=== PATIENT | female | born 1995 | race Caucasian/White ===

== ENCOUNTER 2021-09-15 13:15 | Emergency (ER) | payer MEDICAID, OTHER ==
[~2021-09-15] VITALS: Ht 167.7 cm; Wt 90.7 kg
[2021-09-15] MEDS ORDERED: MIDAZOLAM 10 MG/2 ML (VERSED) VIAL IM STA (13:35)
[2021-09-15] MEDS ORDERED: HALOPERIDOL 5 MG/ML (HALDOL) VIAL IM STA (13:35)
[2021-09-15] MEDS ORDERED: NS IV 1000 ML 1,000 ML IV SCH (13:45)
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
[2021-09-15 14:08] LABS: BASOPHILS # (AUTO) 0.1 10^3/uL (0.0-0.1); BASOPHILS % (AUTO) 0 % (0-10); EOSINOPHILS % (AUTO) 0 % (0-10); HEMATOCRIT 40 % (35-52); HEMOGLOBIN 14.4 g/dL (11.5-16.0); LYMPHOCYTES # (AUTO) 1.3 10^3/uL (1.0-4.0); LYMPHOCYTES % (AUTO) 7 % (12-44); MEAN CORPUSCULAR HEMOGLOBIN 32 pg (25-34); MEAN CORPUSCULAR HGB CONC 36 g/dL (32-36); MEAN CORPUSCULAR VOLUME 88 fL (80-99); MEAN PLATELET VOLUME 10.2 fL (9.0-12.2); MONOCYTES # (AUTO) 1.6 10^3/uL (0.0-1.0); MONOCYTES % (AUTO) 8 % (0-12); NEUTROPHILS # (AUTO) 16.5 10^3/uL (1.8-7.8); NEUTROPHILS % (AUTO) 84 % (42-75); PLATELET COUNT 292 10^3/uL (130-400); WHITE BLOOD COUNT 19.6 10^3/uL (4.3-11.0)
[2021-09-15 14:35] LABS: BAND NEUTROPHILS 5 %; BASOPHILS % (MANUAL) 1 %; EOSINOPHILS % (MANUAL) 0 %; LYMPHOCYTES % (MANUAL) 7 %; MONOCYTES % (MANUAL) 6 %; NEUTROPHILS % (MANUAL) 80 %
[2021-09-15 14:36] LABS: METAMYELOCYTES % 1 %
[2021-09-15 14:39] LABS: BUN/CREATININE RATIO 10; CARBON DIOXIDE 21 MMOL/L (21-32); CHLORIDE 101 MMOL/L (98-107); CREATININE SERUM 0.89 MG/DL (0.60-1.30); GFR ESTIMATED 91; SODIUM 137 MMOL/L (135-145)
[2021-09-15 14:40] LABS: ACETAMINOPHEN < 10 UG/ML (10-30); ALANINE AMINOTRANSFERASE 22 U/L (0-55); ALBUMIN 4.6 GM/DL (3.2-4.5); ALKALINE PHOSPHATASE 95 U/L (40-136); BILIRUBIN,TOTAL 0.6 MG/DL (0.1-1.0); CALCIUM 9.7 MG/DL (8.5-10.1); GLUCOSE 85 MG/DL (70-105); SALICYLATE < 0.3 MG/DL (5.0-20.0); TOTAL PROTEIN 7.7 GM/DL (6.4-8.2)
[2021-09-15 14:41] LABS: CLARITY,URINE CLOUDY; GLUCOSE, URINE (UA) NEGATIVE (NEGATIVE); KETONES,URINE 2+ (NEGATIVE); LEUKOCYTE ESTERASE ,URINE TRACE (NEGATIVE); NITRITE,URINE POSITIVE (NEGATIVE); PH,URINE 5.5 (5-9); PROTEIN,URINE 1+ (NEGATIVE)
[2021-09-15 14:51] LABS: RBC,URINE 0-2 /HPF
[2021-09-15 14:52] LABS: AMORPHOUS SEDIMENT,UR MOD AMOR URATES /LPF; BACTERIA,URINE LARGE /HPF; HYALINE CASTS, URINE >50 /LPF; WBC,URINE 25-50 /HPF
[2021-09-15 14:53] LABS: BILIRUBIN,URINE 2+ (NEGATIVE)
[2021-09-15 14:55] LABS: COLOR,URINE DARK YELLOW
[2021-09-15 14:57] LABS: AMPHETAMINE SCREEN, URINE POSITIVE (NEGATIVE); BARBITURATE SCREEN URINE NEGATIVE (NEGATIVE); BENZODIAZEPINES SCREEN URINE NEGATIVE (NEGATIVE); CANNABINOID SCREEN, URINE NEGATIVE (NEGATIVE); COCAINE SCREEN URINE NEGATIVE (NEGATIVE); METHADONE STAT NEGATIVE (NEGATIVE); OPIATE SCREEN URINE NEGATIVE (NEGATIVE); OXYCODONE STAT NEGATIVE (NEGATIVE); PROPOXYPHENE STAT NEGATIVE (NEGATIVE); TRICYCLIC ANTIDEPRESSANTS SCRE POSITIVE (NEGATIVE)
[2021-09-15] MEDS ORDERED: cefTRIAXone 1 GM PRE-MIX 50 ML IV STA (15:04)
[2021-09-15] MEDS ORDERED: NS IV 1000 ML 1,000 ML IV STA (15:04)
[2021-09-15 16:10] VITALS: BP 129/67
[2021-09-15] MEDS ORDERED: SULF1TAB38 PO (17:21)
== END 2021-09-15 16:10 | disposition home or self-care (01) ==
LOC: ER FS 13:17
DX: F15.10 Other stimulant abuse, uncomplicated (principal); N30.01 Acute cystitis with hematuria; Z96.0 Presence of urogenital implants
CPT/HCPCS: 36415; 51702; 80053; 80306; 81000; 84703; 85007; 85027; 87077; 87088; 87186; 93005; 93041; 99284; G0480 ×3; 80320; 80329